=== PATIENT | male | born 1950 | race Hispanic/Latino ===

== ENCOUNTER 2023-04-02 11:31 | Outpatient (CLI) | payer MEDICARE | END 2023-04-02 11:32 | disposition home or self-care (01) | LOC: BICRAD 11:31 | PROVIDERS: ATTEND Family Medicine | DX: M25.552 Pain in left hip (principal); M54.50 Low back pain, unspecified; M47.816 Spondylosis without myelopathy or radiculopathy, lumbar region | CPT/HCPCS: 72100; 73502; 80061; 81001; 84436; 84480; G0103; 36415; 80053; 84443; 85025 ==

== ENCOUNTER 2023-05-08 09:03 | Outpatient (CLI) | payer MEDICARE | END 2023-05-08 09:04 | disposition home or self-care (01) | LOC: ULT 09:03 | PROVIDERS: ATTEND Family Medicine | DX: R35.89 Other polyuria (principal) | CPT/HCPCS: 76770 ==

== ENCOUNTER 2023-05-19 08:30 | Outpatient (CLI) | payer MEDICARE ==
[2023-05-19] MEDS ORDERED: Iopamidol 370 76% 100 ML VIAL ONE (13:20)
== END 2023-05-19 08:31 | disposition home or self-care (01) ==
LOC: CT 08:30
PROVIDERS: ATTEND Family Medicine
DX: N21.0 Calculus in bladder (principal)
CPT/HCPCS: 74178; 82565

== ENCOUNTER 2023-10-09 14:49 | Outpatient (CLI) | payer MEDICARE | END 2023-10-09 14:50 | disposition home or self-care (01) | LOC: ULT 14:49 | PROVIDERS: ATTEND Internal Medicine Cardiovascular Disease | DX: R06.02 Shortness of breath (principal); I08.3 Combined rheumatic disorders of mitral, aortic and tricuspid valves | CPT/HCPCS: 93306 ==

== ENCOUNTER 2023-10-10 09:14 | Outpatient (CLI) | payer MEDICARE ==
[2023-10-10] MEDS ORDERED: Regadenoson 0.4 MG/5 ML SYRINGE ONE (10:08)
== END 2023-10-10 09:15 | disposition home or self-care (01) ==
LOC: NM 09:14
PROVIDERS: ATTEND Internal Medicine Cardiovascular Disease
DX: R06.02 Shortness of breath (principal)
CPT/HCPCS: 78452; 93017; A9502; J2785 ×2

== ENCOUNTER 2023-10-14 17:37 | Emergency (ER) | payer MEDICARE ==
[2023-10-14 19:48] LABS: #Basophils 0.03 10x3/uL (0.0-0.2); %Basophils 0.2 % (0.0-1.0); %Eosinophils 0.3 % (0.0-10.0); %Lymphocytes 16.2 % (21.0-51.0); %Monocytes 10.8 % (0.0-10.0); %Neutrophils 71.9 % (42.0-75.0); Hematocrit 47.6 % (42.0-52.0); Hemoglobin 15.9 g/dL (14.0-18.0); Mean Corpuscular HGB CONC 33.4 g/dL (32.0-36.0); Mean Corpuscular Hemoglobin 30.1 pg (27.0-31.0); Mean Platelet Volume 10.9 fL (7.4-10.4); Platelet Count 176 10x3/uL (130-400); Red Blood Cell (RBC) Count 5.29 mill/uL (4.70-6.10)
[2023-10-14 20:07] LABS: INR-International Normal Ratio 1.2; PTT 25.9 sec (22.9-36.1)
[2023-10-14 20:10] LABS: ALT (SGPT) 18 U/L (8-55); AST (SGOT) 18 U/L (5-34); Albumin 3.4 g/dL (3.4-4.8); Alkaline Phosphatase 109 U/L (40-110); Anion Gap 13 mmol/L (10-20); BUN (Urea Nitrogen) 28 mg/dL (8.4-25.7); Bilirubin, Total 0.4 mg/dL (0.2-1.2); Calc. Creatinine Clearance 0 mL/min (70-130); Calcium 9.1 mg/dL (7.8-10.44); Carbon Dioxide 22 mmol/L (23-31); Chloride 108 mmol/L (98-107); Estimated GFR 57; Globulin 3.2 g/dL (2.4-3.5); Glucose 144 mg/dL (83-110); Potassium 3.8 mmol/L (3.5-5.1); Protein, Total 6.6 g/dL (5.8-8.1); Sodium 139 mmol/L (136-145)
== END 2023-10-14 22:02 | disposition home or self-care (01) ==
LOC: ERS 17:37
DX: R31.9 Hematuria, unspecified (principal); N17.9 Acute kidney failure, unspecified; I10 Essential (primary) hypertension; Z90.79 Acquired absence of other genital organ(s); Z46.6 Encounter for fitting and adjustment of urinary device
CPT/HCPCS: 36415; 80053; 85025; 85610; 85730; 86850; 86900; 86901; 93005; 96360